=== PATIENT | female | born 1990 | race Caucasian/White ===

== ENCOUNTER 2018-07-05 11:25 | Emergency (ER) | payer BC ==
[~2018-07-05] VITALS: Ht 172.7 cm; Wt 71.7 kg
[2018-07-05] MEDS ORDERED: ALBUTEROL SULF 0.083% NEB SOLN 3 ML NEB NEB STA (11:49)
[2018-07-05] MEDS ORDERED: TRAZODONE HCL50 MG PO (12:00)
[2018-07-05] MEDS ORDERED: TRILEPTAL300 MG (12:00)
[2018-07-05] MEDS ORDERED: ABILIFY5 MG PO (12:00)
[2018-07-05] MEDS ORDERED: ZYRTEC10 MG PO (12:00)
[2018-07-05] MEDS ORDERED: ZOFRAN ODT4 MG PO (12:34)
[2018-07-05] MEDS ORDERED: BROMFED DM COU118 ML PO (12:34)
[2018-07-05] MEDS ORDERED: IMODIUM2 MG PO (12:34)
[2018-07-05] MEDS ORDERED: PROAIR HFA INH8.5 GM INH (12:34)
== END 2018-07-05 13:09 | disposition home or self-care (01) ==
LOC: FSED 11:25
DX: R05 Cough (principal); B34.9 Viral infection, unspecified; A08.0 Rotaviral enteritis; F17.210 Nicotine dependence, cigarettes, uncomplicated; F31.9 Bipolar disorder, unspecified
CPT/HCPCS: 81003; 81025; 82270; 99284

== ENCOUNTER 2020-05-04 03:47 | Emergency (ER) | payer BC ==
[~2020-05-04] VITALS: Ht 172.7 cm; Wt 63.5 kg
[~2020-05-04 03:47] MED LIST: ABILIFY5 MG PO; BROMFED DM COU118 ML PO; IMODIUM2 MG PO; PROAIR HFA INH8.5 GM INH; TRAZODONE HCL50 MG PO; TRILEPTAL300 MG; ZOFRAN ODT4 MG PO; ZYRTEC10 MG PO
--- NOTE | 2020-05-04 04:33 | Emergency Department Note ---
History of Present Illnes History of Present Illness Chief Complaint: Chest Pain History of Present Illness This is a 30 year old female with history of bipolar disorder and exer cise-induced asthma who presents with intermittent left-sided sharp, chest pain that started yesterday. Patient states that the pain is sharp, stabbing, and worse when she takes a deep breath. She states that "she feels like her heart is beating fast." She has some mild associated SOB. She denies any associated dizziness, lightheadedness, chest tightness, heaviness, nausea, vomiting, or diaphoresis. There is no radiation of the pain. Patient states that she has had similar chest pain in the past, and she was concerned because this episode has been ongoing for the past 6 hours. Patient states she has had history of anxiety and and panic attacks, but has not had any symptoms of anxiety in the past 5 years. She recalls the her current symptoms may be similar to symptoms associated with anxiety in the past. She denies any family history of heart disease. Patient does smoke one pack of cigarettes per day. She uses NuvaRing for control. 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 Historian: Patient Arrival Mode: Car Registered Nurse Bone Marrow Transplant Required: No Onset (how long ago): day(s) (2) Location: left side of chest Quality: sharp, stabbing Radiation: Reports non-radiation Severity: moderate Onset quality: sudden Duration (how long): hour(s) (current episode 6 hours;) Timing of current episode: intermittent Progression: unchanged Chronicity: new Context: Denies recent illness, Denies recent travel, Denies trauma/injury, Denies hx of DVT/PE Relieving factors: none Exacerbating factors: other (deep inspiration) Associated symptoms: Reports denies other symptoms, Reports shortness of breath; Denies cough, Denies fever/chills, Denies nausea/vomiting, Denies weakness Treatments prior to arrival: none Risk factors: smoking, control, hx of anxiety Past Medical/Family History Physician Review I have reviewed the patient's past medical and family history. Any updates have been documented here. Past Medical History Recent Fever: No Clinical Suspicion of Infectio: No New/Unexplained Change in Ment: No Past Medical History: Asthma, Other Mental Illness Other Medical History: BIPOLAR Past Surgical History: Hernia Repair Other Surgery: SHOULDER ACL Social History Smoking Cessation: Current every day smoker Counseling Performed: No Alcohol Use: Occasional Any Illegal Drug Use: No Physically hurt or threatened: No Other Last Tetanus: UNK Any Pre-Existing Lines (PICC,: No Is patient up to date on immun: No Review of Systems Review of Systems Constitutional: Denies chills, Denies fever, Denies malaise EENTM: Reports no symptoms Cardiovascular: Reports chest pain, Reports palpitations; Denies edema, Denies syncope Respiratory: Reports pain on inspiration; Denies chest congestion, Denies cough, Denies hemoptysis, Denies pain with cough, Denies dyspnea on exertion Gastrointestinal: Denies abdominal pain, Denies nausea, Denies vomiting Genitourinary: Denies dysuria, Denies frequency Musculoskeletal: Denies back pain, Denies neck pain Integumentary: Reports no symptoms Neurological: Denies numbness, Denies paresthesia Psychological: Reports anxiety, Reports other (Bipolar) Endocrine: Reports no symptoms Hematological/Lymphatic: Reports no symptoms Review of other systems: All other systems negative Physical Exam Related Data Allergies: Coded Allergies: aspirin (Verified Allergy, Unknown, 05/04/20) CAN'T TAKE DUE TO BEING ON LITHIUM. NOT ALLERGIC Triage Vital Signs Vital Signs Date Time Temp Pulse Resp B/P (MAP) Pulse Ox O2 Delivery O2 Flow Rate FiO2 05/04/20 03:52 98.8 63 18 126/78 98 Room Air Vital signs reviewed: Yes Physical Exam CONSTITUTIONAL Constitutional: Present well-developed, Present well-nourished; Absent distressed, Absent ill appearing HENT HENT: Present normocephalic, Present atraumatic, Present oropharynx clear/moist, Present nose normal HENT L/R: Present left ext ear normal, Present right ext ear normal EYES Eyes: Reports PERRL, Reports conjunctivae normal NECK Neck: Present ROM normal; Absent JVD, Absent cervical adenopathy PULMONARY Pulmonary: Present effort normal, Present breath sounds normal CARDIOVASCULAR Cardiovascular: Present regular rhythm, Present heart sounds normal, Present capillary refill normal, Present normal rate GASTROINTESTINAL Abdominal: Present soft, Present nontender, Present bowel sounds normal; Absent tender GENITOURINARY SKIN Skin: Present warm, Present dry; Absent rash MUSCULOSKELETAL Musculoskeletal: Present ROM normal NEUROLOGICAL Neurological: Present alert, Present oriented x 3, Present no gross motor or sensory deficits PSYCHOLOGICAL Psychological: Present mood/affect normal, Present judgement normal Results Laboratory Laboratory UA - negative; UPT - negative; Cardiacs - negative; D-dimer - negative; CBC - normal; BMP - ml except for K+ = 2.7; this was repeated on a CMP, with same K+ result of 2.7. A fresh sample was drawn and sent to [facility], with K+ - 3.0 and Mg = 2.0; Lab results reviewed: Yes Imaging Imaging results reviewed: Yes Impressions [place] [id number] Patient Name: DARCY DOMINGUEZ MR #: [id number] : 1990 Age/Sex: 30/F Req #: [id number] [facility] Physician: Ordered by: REFUGIO LUO MD Report #: [id number] Location: [facility] Room/Bed: Procedure: [id number] HOPD/CXR 2 VIEW - HOPD Exam Date: 05/04/20 Exam Time: 448 REPORT STATUS: Signed EXAMINATION: CXR 2 VIEW - HOPD INDICATION: ^pleuritic chest pain ^[id number] ^[id number] COMPARISON: None FINDINGS: PA and lateral views TUBES and LINES: None. LUNGS: Lungs are well inflated. There is no evidence of pneumonia or pulmonary edema. PLEURA: No pleural effusion or pneumothorax. HEART AND MEDIASTINUM: The cardiomediastinal silhouette is unremarkable. BONES AND SOFT TISSUES: No acute osseous lesion. Soft tissues are unremarkable. UPPER ABDOMEN: No free air under the diaphragm. IMPRESSION: No acute thoracic abnormality. Signed by: Dr. Anthony Kiran MD on 05/04/2020 4:58 AM Dictated By: ANTHONY KIRAN MD 7 Transcribed By: GUME on 05/04/20457 COPY TO: REFUGIO LUO MD~ Procedures 12 Lead ECG Interpretation ECG Interpretation : ECG: ECG 1 Registered Nurse Bone Marrow Transplant: Interpreted by ED physician Date: May 04, 2020 Time: 03:55 Prior ECG tracings: not available for review Rhythm: sinus rhythm Rate: normal BPM: 63 QRS axis: normal ST segments normal: Yes T waves normal: Yes Other findings: no other findings Clinical Impression: normal ECG Assessment & Plan Medical Decision Making MDM Patient received Amara Dur 40 mEq by mouth in the ED, followed by a prescription for 40 mEq by mouth twice a day 2 days then 20 mg once by mouth daily 3 days, and then stop. Patient should increase potassium Rich foods in her diet and increase her Gatorade intake, especially while she is out working in the heat. Patient was understanding of the plan. - Take medications as directed for anxiety and low potassium - See list a Potassium Rich foods, and increased these in your diet until you can follow up for repeat blood work, with your psychiatrist. - Please contact your Psychiatrist to follow up for blood work in one week, and also to discuss chronic management of your anxiety. Please take results from today's ER visit with you for this follow-up appointment. As discussed, your low potassium may be due to the chronic medications at your prescribed by vicky cleveland. Reassessment Reassessment Patient states that her cp resolved, prior to going for CXR. She does believe that her cp was due to anxiety. She states that she is under stress at work and is concerned about her children starting school, which will be remote. She states that she recalls taking Ativan in the past, prn, with previous episodes. - Reviewed results of lab, EKG and CXR with patient. The only abnormality is a significantly low potassium level, which has been run here, twice on 2 different machines, with the same result of 2.7. This is not congruent with patient's symptoms, she denies any nausea, vomiting, diarrhea, polyuria, or polydipsia. She denies taking any diuretics or any history of having low potassium. She has her blood drawn every 3 months with her psychiatrist, due to treatment with lithium and Latuda, and she states that she's never had a problem with her potassium being low. She does work outside and sweats profusely, but she states that she drinks "a lot of Gatorade." Patient admits to being very tired, but states "she hasn't been sleeping well lately." She denies any muscle weakness. - Patient has no U waves on EKG or other abnormalities typically seen on EKG with significant hypokalemia - Explained to patient that we need to verify this low potassium level, by sending a sample across the street to the hospital to be run on their machine. If her potassium level is actually this low, this will require hospital admission for replacement monitoring, and further evaluation as to the etiology of her potassium loss. Since she does take lithium, it is possible that she may be wasting potassium through her kidneys. Pt is agreeable, and voiced understanding of the plan. Assessment & Plan Final Impression: (1) Chest pain (2) Anxiety (3) Hypokalemia (4) Bipolar disorder Depart Disposition: HOME, SELF-CARE Last Vital Signs Date Time Temp Pulse Resp B/P (MAP) Pulse Ox O2 Delivery O2 Flow Rate FiO2 05/04/20 03:52 98.8 63 18 126/78 98 Room Air Home Meds Active Scripts Loperamide Hcl* (IMODIUM*) 2 Mg Cap, 2 MG PO ONCE PRN for DIARRHEA, #1 PKG 0 Refills take as per pkg instructions after loose stools/diarrhea Prov:JEOVANNY RIVAS MD 07/05/18 Albuterol Sulf* (PROAIR HFA INHALER*) 8.5 Gm Inh, 2 SPRAYS INH Q4HR PRN for COUGH, #1 INH 0 Refills Prov:JEOVANNY RIVAS MD 07/05/18 Ondansetron (ZOFRAN ODT) 4 Mg Tab.rapdis, 8 MG PO Q8H PRN for Nausea, #14 0 Refills May sub with tablet in place of ODT Prov:JEOVANNY RIVAS MD 07/05/18 D-Methorphan Hb/P-Epd Hcl/Bpm (BROMFED DM COUGH SYRUP) 118 Ml Syrup, 10 ML PO Q4H PRN for COUGH, #200 ML 0 Refills Prov:JEOVANNY RIVAS MD 07/05/18 Reported Medications Aripiprazole (ABILIFY) 5 Mg Tablet, 5 MG PO DAILY, #30 TAB 07/05/18 Trazodone Hcl (TRAZODONE HCL) 50 Mg Tablet, 50 MG PO DAILY, #30 TAB 07/05/18 Oxcarbazepine (TRILEPTAL) 300 Mg Tablet 07/05/18 Cetirizine Hcl (ZYRTEC) 10 Mg Tablet, 1 TAB PO DAILY THERAPEUTICALLY SUBSTITUTED WITH LORATADINE 10MG 07/05/18 REFUGIO LUO MD May 04, 2020 04:33
--- NOTE | 2020-05-04 04:46 | NUR ---
RETURNED FROM XR TO RM 2. REPLACED ON MONITOR
--- NOTE | 2020-05-04 05:01 | Diagnostic Imaging Report ---
EXAMINATION: CXR 2 VIEW - HOPD INDICATION: ^pleuritic chest pain ^[id number] ^[id number] COMPARISON: None FINDINGS: PA and lateral views TUBES and LINES: None. LUNGS: Lungs are well inflated. There is no evidence of pneumonia or pulmonary edema. PLEURA: No pleural effusion or pneumothorax. HEART AND MEDIASTINUM: The cardiomediastinal silhouette is unremarkable. BONES AND SOFT TISSUES: No acute osseous lesion. Soft tissues are unremarkable. UPPER ABDOMEN: No free air under the diaphragm. IMPRESSION: No acute thoracic abnormality. Signed by: Dr. Anthony Zavaleta MD on 05/04/2020 4:58 AM
--- NOTE | 2020-05-04 05:18 | NUR ---
PT INFORMED BY MD TEST RESULTS AND CARE PLAN. PT ASK FOR ANOTHER BLANKET AND LIGHTS OUT SO SHE CAN TRY TO SLEEP.
--- NOTE | 2020-05-04 05:20 | NUR ---
IV EST. WITH BLOOD DRAW REPEAT AT MD REQUEST DUE TO BMP AND CMP SHOWING ABNORMAL K+... BLOOD SPECIMEN SENT TO LAB AT [facility]
--- NOTE | 2020-05-04 06:17 | NUR ---
IVSL DC'D WITHOUT DIFF. NO REDNESS/SWELLING/BLEEDING TO SITE. CATH INTACT. PT GETTING DRESSED FOR DC HOME
[2020-05-04] MEDS ORDERED: POTASSIUM CHLORIDE 20 MEQ TAB CR PO ONE (06:18)
[2020-05-04 06:19] VITALS: BP 128/80
[2020-05-04] MEDS ORDERED: ATIVAN1 MG PO (06:21)
== END 2020-05-04 06:34 | disposition home or self-care (01) ==
LOC: FSED 04:15
DX: R07.89 Other chest pain (principal); F41.9 Anxiety disorder, unspecified; E87.6 Hypokalemia; F31.9 Bipolar disorder, unspecified; F17.210 Nicotine dependence, cigarettes, uncomplicated
CPT/HCPCS: 36415; 71046; 80048; 81003; 81025; 82553; 83735; 84132; 84484; 85025; 85379; 93005; 99284